=== PATIENT | female | born 2000 | race Two or more races ===

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

== ENCOUNTER 2019-06-06 07:45 | Emergency (ER) | payer OTHER ==
[~2019-06-06] VITALS: Ht 154.9 cm; Wt 47.6 kg
[~2019-06-06 07:45] MED LIST changes: +OMEPRAZOLE10 M1 ORAL; +ZOFRAN4 MG ORAL
--- NOTE | 2019-06-06 08:00 | NUR ---
ED Nurse Note: Pt walked in to ER c/o sore throat and having fever for 2 days. pt aao x4 and ambulatory. skin clean and intact. pt calm and cooperative. pt is in gown and on dry ice maker due to high heart rate in triage. no acute distress noted. pt reported that she has been coughing but could not cough up phlem and it hurts her throat. nausea present but no vomiting. pt also c/o occasional chest tightness which she is unsure if it is due to coughing.
[2019-06-06 08:05] VITALS: BP 98/67
--- NOTE | 2019-06-06 08:10 | NUR ---
ED Nurse Note: ERMD at bedside.
--- NOTE | 2019-06-06 08:14 | Emergency Room Report ---
History of Present Illness General Chief Complaint: Fever Source: Patient, Medical Record Present Illness HPI Disclaimer: Please note that this report is being documented using [employer] technology. This can lead to erroneous entry secondary to incorrect interpretation by the dictating instrument. HPI: 19-year-old female presents for evaluation of fever, body aches, nausea. Patient describes symptoms for 2 to 3 days. Notes intermittent fevers as high as 101 degrees at home taken orally as well as rigors. She has been nauseated but no vomiting. Complaining of nasal congestion, diffuse myalgias and arthralgias, increased sneezing without coughing, headaches, dysuria. She denies hematuria, vaginal bleeding, vaginal discharge. She has a Nexplanon implant last period was 1 month ago. She notes some abdominal cramping and diarrhea. Denies melena or hematochezia. Denies rash or skin breakdown. No known sick contacts. She has been taking NSAIDs at home with minimal improvement in her symptoms. Last dose of NSAIDs was yesterday evening. PMH: Eczema PSH: None Allergies: Seasonal, shellfish, pet dander Social Hx: Denies alcohol, tobacco or drug use Allergies: Uncoded Allergies: CATS (Allergy, Unknown, 06/06/19) COCKROACHES (Allergy, Unknown, 06/06/19) DOGS (Allergy, Unknown, 06/06/19) SHIMP (Allergy, Unknown, 06/06/19) Patient History Last Menstrual Period: april Now: No Review of Systems All Other Systems: negative except mentioned in HPI Physical Exam Vital Signs Date Time Temp Pulse Resp B/P (MAP) Pulse Ox O2 Delivery O2 Flow Rate FiO2 06/06/19 07:52 99.9 135 16 98/67 (77) 96 Room Air General: Awake and alert, appears fatigued, uncomfortable HEENT: NC/AT. EOMI. PERRLA. No nystagmus. Anicteric sclera. Moist mucous membranes. Retropharynx is erythematous without exudate. Tonsils are 3+, uvula is midline. No exudate. Voice is muffled slightly though the patient is breathing without difficulty. Tolerating her secretions. Neck: Supple, trachea midline. Mild anterior cervical lymphadenopathy. No submandibular swelling Chest Wall: Chest wall is mildly tender to palpation without deformity Cardiovascular: Tachycardia, rate in the 130s. S1 and S2 normal. No murmur appreciated Resp: Normal work of breathing. No cough, wheezing or crackles appreciated Abdomen: Abdomen is soft, nondistended. Nontender. No masses appreciated. Skin: Warm to the touch. Intact. No abrasions, laceration or rash over the exposed skin MSK: Normal tone and bulk. Moving all extremities. No obvious deformity. Tenderness over almost all major joints and muscle groups. Neuro: Awake and alert. Mentating appropriately. Moving all extremities. Medical Decision Making ER Course Is a 19-year-old female presenting with several days of febrile illness, nausea , diarrhea and dysuria. Differential includes but is not limited to upper respiratory infection, epiglottitis, pharyngitis, tonsillitis pyelonephritis, gastroenteritis, viral syndrome, upper respiratory syndrome, sepsis. Patient is tachycardic, slight elevation in temperature but does not meet fever criteria , overall fatigued and uncomfortable appearing. Will start IV fluids, 30 cc/kg bolus, antipyretics, antiemetics. Will send labs including cultures, sepsis protocol ordered along with CXR and soft tissue neck XR. Will give steroids for throat pain and swelling. Laboratory Tests Test 06/06/19 08:10 White Blood Count 12.3 K/UL (4.8-10.8) H Red Blood Count 4.43 M/UL (4.20-5.40) Hemoglobin 13.2 G/DL (12.0-16.0) Hematocrit 38.8 % (37.0-47.0) Mean Corpuscular Volume 88 FL (80-99) Mean Corpuscular Hemoglobin 29.8 PG (27.0-31.0) Mean Corpuscular Hemoglobin Concent 33.9 G/DL (32.0-36.0) Red Cell Distribution Width 11.6 % (11.6-14.8) Platelet Count 244 K/UL (150-450) Mean Platelet Volume 6.8 FL (6.5-10.1) Neutrophils (%) (Auto) % (45.0-75.0) Lymphocytes (%) (Auto) % (20.0-45.0) Monocytes (%) (Auto) % (1.0-10.0) Eosinophils (%) (Auto) % (0.0-3.0) Basophils (%) (Auto) % (0.0-2.0) Neutrophils % (Manual) Pending Lymphocytes % (Manual) Pending Platelet Estimate Pending Platelet Morphology Pending Urine Color Pale yellow Urine Appearance Clear Urine pH 8 (4.5-8.0) Urine Specific [place] 1.015 (1.005-1.035) Urine Protein Negative (NEGATIVE) Urine Glucose (UA) Negative (NEGATIVE) Urine Ketones 2+ (NEGATIVE) H Urine Blood 1+ (NEGATIVE) H Urine Nitrite Negative (NEGATIVE) Urine Bilirubin Negative (NEGATIVE) Urine Urobilinogen 1 MG/DL (0.0-1.0) H Urine Leukocyte Esterase Negative (NEGATIVE) Urine RBC 0-2 /HPF (0 - 2) Urine WBC 0-2 /HPF (0 - 2) Urine Squamous Epithelial Cells Few /LPF (NONE/OCC) Urine Amorphous Sediment Few /LPF (NONE) H Urine Bacteria Occasional /HPF (NONE) Sodium Level 135 MMOL/L (136-145) L Potassium Level 3.9 MMOL/L (3.5-5.1) Chloride Level 101 MMOL/L (98-107) Carbon Dioxide Level 25 MMOL/L (21-32) Anion Gap 9 mmol/L (5-15) Blood Urea Nitrogen 7 mg/dL (7-18) Creatinine 0.6 MG/DL (0.55-1.30) Estimat Glomerular Filtration Rate > 60 mL/min (>60) Glucose Level 99 MG/DL (74-106) Lactic Acid Level 0.70 mmol/L (0.4-2.0) Calcium Level 9.1 MG/DL (8.5-10.1) Total Bilirubin 0.3 MG/DL (0.2-1.0) Aspartate Amino Transf (AST/SGOT) 15 U/L (15-37) Alanine Aminotransferase (ALT/SGPT) 15 U/L (12-78) Alkaline Phosphatase 68 U/L (46-116) Total Creatine Kinase 37 U/L (26-308) Creatine Kinase MB < 0.5 NG/ML (0.0-3.6) Creatine Kinase MB Relative Index 1.3 Troponin I 0.000 ng/mL (0.000-0.056) Total Protein 7.7 G/DL (6.4-8.2) Albumin 3.8 G/DL (3.4-5.0) Globulin 3.9 g/dL Albumin/Globulin Ratio 1.0 (1.0-2.7) EKG Diagnostic Results EKG Time: 08:30 Rate: tachycardiac Rhythm: NSR Other Impression Sinus tachycardia with a rate of 108 bpm. Normal intervals, normal axis. No acute ischemic changes. Rhythm Strip Diag. Results Rhythm Strip Time: 08:30 EP Interpretation: yes Rate: 100s Rhythm: NSR Chest X-Ray Diagnostic Results Chest X-Ray Diagnostic Results : Chest X-Ray Ordered: Yes # of Views/Limited/Complete: 1 View Indication: Shortness of Breath EP Interpretation: Yes Interpretation: no consolidation, no effusion, no pneumothorax Impression: Other - Mild increase in pulmonary vascularity, may represent viral syndrome Electronically Signed by: Electronically signed by Dr. Micah Ronquillo Other X-Ray Diagnostic Results Other X-Ray Diagnostic Results : X-Ray ordered: Soft tissue neck # of Views/Limited Vs Complete: 2 View Indication: Pain Impression: Other - Patent airway. Epiglottis appears normal in size Reevaluation Time: 10:00 Last Vital Signs Date Time Temp Pulse Resp B/P (MAP) Pulse Ox O2 Delivery O2 Flow Rate FiO2 06/06/19 07:52 99.9 135 16 98/67 (77) 96 Room Air Reevaluation Impression Fever improving after antipyretics. Patient is receiving IV fluids and heart rate is also improving. Lab work shows an elevated white count but otherwise largely within normal limits. No evidence of a clear urinary tract infection, no electrolyte abnormalities, normal renal function, troponin is negative and lactate is 0.7. She is receiving 30 cc/kg bolus. Chest x-ray shows no obvious infiltrates but does show some increased vascularity likely reactive from possible viral illness. 1108: Fever resolved. Tachycardia resolved. Likely an upper respiratory infection, most likely viral. Cultures of the throat are sent as were blood cultures. I offered her admission for IV fluid hydration, continued monitoring of fever and pain control though she is electing to return home at this time. We will provide a note for work and discharged with 2 additional days of prednisone for throat swelling. Gave very strict return precautions to patient and family were present at bedside. They all verbalized understanding of the lab results, new medications, need for follow-up and reasons to return to the emergency department. Patient will be discharged home. 1200: Notified by radiologist of their interpretation of possible mass causing widening the hypopharynx versus prominent tonsils. Also noted questionable lobulated appearance to the glottic region in the lateral view without evidence of epiglottic swelling or glottic narrowing. While I did visualize the retropharynx and the patient had very large tonsils that were nonobstructing I did notify her at home and advised her to return to the emergency department for a CT scan of the neck to fully evaluate for possible mass. The patient was speaking full sentences and stated that she was feeling greatly improved since returning home. She had no problem tolerating secretions, drinking and eating. She stated that she would return to the emergency department though may not be able to do so today she would return tomorrow for reevaluation and CT scan of the neck. I did stress that is important that she follow-up on this as there may be a soft tissue swelling/mass in the neck that is not related to her tonsils that needs to be further evaluated. She understood this and stated that she would return to the emergency department most likely tomorrow morning Disposition: HOME, SELF-CARE Condition: Improved Scripts Prednisone* (PREDNISONE*) 20 Mg Tablet 40 MG ORAL DAILY for 2 Days, #4 TAB Prov: Micah Ronquillo MD 06/06/19 Ondansetron Odt* (ZOFRAN ODT*) 4 Mg Tab.rapdis 4 MG BC EVERY 6 HOURS PRN for Nausea & Vomiting, #20 TAB 0 Refills Prov: Micah Ronquillo MD 06/06/19 Referrals: NON PHYSICIAN (PCP) Micah Ronquillo MD Jun 06, 2019 08:14
[2019-06-06] MEDS ORDERED: Sodium Chloride 1,400 ML IVLG ONE (08:15)
[2019-06-06] MEDS ORDERED: Acetaminophen 500mg (ES) tab ORAL ONE (08:15)
--- NOTE | 2019-06-06 08:20 | NUR ---
ED Nurse Note: x-ray at bedside.
[2019-06-06 08:29] LABS: APPEARANCE,URINE CLEAR; BILIRUBIN, URINE NEGATIVE (NEGATIVE); COLOR,URINE PALE YELLOW; GLUCOSE, URINE (UA) NEGATIVE (NEGATIVE); KETONES,URINE 2+ (NEGATIVE); LEUKOCYTE ESTERASE ,URINE NEGATIVE (NEGATIVE); NITRITE,URINE NEGATIVE (NEGATIVE); PROTEIN,URINE NEGATIVE (NEGATIVE); UROBILINOGEN,URINE 1 MG/DL (0.0-1.0)
[2019-06-06 08:35] LABS: ANION GAP 9 mmol/L (5-15); BLOOD UREA NITROGEN 7 mg/dL (7-18); CALCIUM 9.1 MG/DL (8.5-10.1); CARBON DIOXIDE 25 MMOL/L (21-32); CHLORIDE 101 MMOL/L (98-107); CREATININE 0.6 MG/DL (0.55-1.30); HEMATOCRIT 38.8 % (37.0-47.0); HEMOGLOBIN 13.2 G/DL (12.0-16.0); MEAN CORPUSCULAR VOLUME 88 FL (80-99); PLATELET COUNT 244 K/UL (150-450); POTASSIUM 3.9 MMOL/L (3.5-5.1); RED BLOOD COUNT 4.43 M/UL (4.20-5.40); RED CELL DISTRIBUTION WIDTH 11.6 % (11.6-14.8); SODIUM 135 MMOL/L (136-145); WHITE BLOOD COUNT 12.3 K/UL (4.8-10.8)
[2019-06-06 08:41] LABS: PH,URINE 8 (4.5-8.0)
[2019-06-06] MEDS ORDERED: Dexamethasone 4mg/ml vial IVP ONE (08:45)
[2019-06-06 08:48] LABS: ALANINE AMINOTRANSFERASE 15 U/L (12-78); ALBUMIN 3.8 G/DL (3.4-5.0); ALKALINE PHOSPHATASE 68 U/L (46-116); ASPARTATE AMINO TRANSFERASE 15 U/L (15-37); BILIRUBIN,TOTAL 0.3 MG/DL (0.2-1.0); CKMB < 0.5 NG/ML (0.0-3.6); CREATINE KINASE 37 U/L (26-308)
--- NOTE | 2019-06-06 08:55 | NUR ---
ED Nurse Note: pt went down to x-ray neck soft tissue in stable condition.
--- NOTE | 2019-06-06 09:14 | NUR ---
ED Nurse Note: pt came back from x-ray in stable condition.
--- NOTE | 2019-06-06 09:37 | NUR ---
ED Nurse Note: ERMD at bedside explaining pt about lab results.
[2019-06-06 10:05] VITALS: BP 101/74
--- NOTE | 2019-06-06 11:00 | NUR ---
ED Nurse Note: ERMD at bedside talking to family and pt.
[2019-06-06] MEDS ORDERED: ONDANSETRON ODT4 MG BC (11:07)
[2019-06-06] MEDS ORDERED: PREDNISONE20 MG ORAL (11:07)
[2019-06-06 11:15] VITALS: BP 108/71
--- NOTE | 2019-06-06 11:15 | NUR ---
ER DISCHARGE NOTE: Patient is cleared to be discharged per ERMD, pt is aox4, accompanied by parents, on room air, with stable vital signs. pt was given dc and prescription instructions, pt was able to verbalize understanding, pt id band and iv site removed without complications. pt is able to ambulate with steady gait. pt took all belongings.
--- NOTE | 2019-06-06 11:51 | Diagnostic Imaging Report ---
Indication: Neck pain and cough Technique: 2 views of the neck with soft tissue technique Comparison: none Findings: No prevertebral soft tissue swelling. No glottic narrowing demonstrated. Normal appearing epiglottis. There is suggestion of a lobulated soft tissue mass widening the hypopharynx. There is also a somewhat lobulated appearance to the glottic region. No radiopaque foreign body Impression: Possible soft tissue mass widening the hypopharynx versus prominent tonsils Questionable unusual lobulated appearance to the glottic region on the lateral view. Correlate with clinical findings, consider direct visualization No radiopaque foreign body No evidence of epiglottic swelling or glottic narrowing. Findings discussed by phone with Dr. Ronquillo in the emergency room at the time of interpretation
--- NOTE | 2019-06-06 15:23 | Diagnostic Imaging Report ---
Indication: Cough Technique: One view of the chest Comparison: none Findings: Lungs and pleural spaces are clear. Heart size is normal. Impression: No acute process
[2019-06-07] MEDS ORDERED: AUGMENTIN 875-1 EAC1 ORAL (15:45)
--- NOTE | 2019-06-10 11:20 | Cardiology Report ---
APPROVED REPORT EKG Measurement Heart [id number] ND [id number] [id number] Sinus tachycardia Low voltage QRS Borderline ECG
== END 2019-06-06 11:15 | disposition home or self-care (01) ==
LOC: EMR 08:00
DX: R50.9 Fever, unspecified (principal); R11.0 Nausea; R19.7 Diarrhea, unspecified; R30.0 Dysuria; Z91.013 Allergy to seafood; Z91.09 Other allergy status, other than to drugs and biological substances; R00.0 Tachycardia, unspecified
CPT/HCPCS: 36415; 70360; 71045; 80053; 81003; 82550; 82553; 83605; 84484; 85007; 85025; 87040; 87070; 93005; 96361; 96374; 96375; 99284; J1100; J2405

== ENCOUNTER 2019-06-07 13:18 | Emergency (ER) | payer OTHER ==
[~2019-06-07] VITALS: Ht 154.9 cm; Wt 47.6 kg
[~2019-06-07 13:18] MED LIST changes: +ONDANSETRON ODT4 MG BC; +PREDNISONE20 MG ORAL
--- NOTE | 2019-06-07 13:50 | NUR ---
ED Nurse Note: Patient walked into ED for neck pain after getting a phone call from [facility] to come back for CT SCAN of the neck. patient was here at [facility] on 06/06/19. patient is alert awake x4 ambulatory, breathing unlabored and even.
[2019-06-07] MEDS ORDERED: Isovue-370 150ml vial INJ PRN (14:00)
--- NOTE | 2019-06-07 14:44 | NUR ---
ED Nurse Note: patient taken to CT scan.
[2019-06-07 15:01] LABS: BASOPHILS % (AUTO) 0.5 % (0.0-2.0); EOSINOPHILS % (AUTO) 1.1 % (0.0-3.0); HEMATOCRIT 36.2 % (37.0-47.0); HEMOGLOBIN 11.9 G/DL (12.0-16.0); LYMPHOCYTES % (AUTO) 13.4 % (20.0-45.0); MEAN CORPUSCULAR VOLUME 89 FL (80-99); MONOCYTES % (AUTO) 7.1 % (1.0-10.0); NEUTROPHILS % (AUTO) 77.9 % (45.0-75.0); PLATELET COUNT 249 K/UL (150-450); RED BLOOD COUNT 4.07 M/UL (4.20-5.40); RED CELL DISTRIBUTION WIDTH 11.7 % (11.6-14.8)
--- NOTE | 2019-06-07 15:39 | Diagnostic Imaging Report ---
EXAM: CT Neck With Intravenous Contrast CLINICAL HISTORY: MASS TECHNIQUE: Axial computed tomography images of the neck with intravenous contrast. CTDI is 17.51 mGy and DLP is 542 mGy-cm. One or more of the following dose reduction techniques were used: automated exposure control, adjustment of the mA and/or kV according to patient size, use of iterative reconstruction technique. COMPARISON: No relevant prior studies available. FINDINGS: Marked palatine and lingual tonsillar swelling. The adenoid is also swollen. Findings are consistent with pharyngitis. Moderate degree of oropharyngeal/hypopharyngeal airway narrowing. Effacement of the vallecula. No peritonsillar abscess. No clear evidence of epiglottitis. No retropharyngeal abscess. IMPRESSION: Pharyngitis with left greater than right palatine and lingual tonsillar swelling. Moderate airway narrowing. No abscess. <MYCVCSECTION> Critical Value Communications 06/07/19 15:45 Verify Receipt Verified receipt with [facility] EMT given to Danielle HUMPHREYS on 06/07 15:45 (-07:00)
--- NOTE | 2019-06-07 15:43 | Emergency Room Report ---
History of Present Illness General Chief Complaint: Pain Source: Medical Record Present Illness HPI 19-year-old female with no significant past medical history here requesting a CT scan of the neck. Patient was here at [facility] yesterday for sore throat fever of 101. And neck pain. Soft tissue x-ray of neck was performed and showed a possible mass. Patient was told by Dr. Ronquillo to return to the emergency room for CT scan of the neck with contrast. Patient was discharged with prednisone and Zofran as well as ibuprofen. Patient is rating her pain 5 out of 10 today reports that has not yet started the medication yet. Denies fever and chills, cough and congestion. Denies abdominal pain, nausea vomiting. Patient is in no distress. Denies neck stiffness, photophobia, headache and blurry vision. Allergies: Uncoded Allergies: CATS (Allergy, Unknown, 06/06/19) COCKROACHES (Allergy, Unknown, 06/06/19) DOGS (Allergy, Unknown, 06/06/19) SHIMP (Allergy, Unknown, 06/06/19) Patient History Past Medical History: see triage record Past Surgical History: unable to obtain Pertinent Family History: none Last Menstrual Period: 04/2019 Now: No : 1 Para: 0 Immunizations: UTD Reviewed Nursing Documentation: PMH: Agreed; PSxH: Agreed Review of Systems All Other Systems: negative except mentioned in HPI Physical Exam Vital Signs Date Time Temp Pulse Resp B/P (MAP) Pulse Ox O2 Delivery O2 Flow Rate FiO2 06/07/19 13:46 99.3 102 18 99/66 (77) 98 Room Air Sp02 EP Interpretation: reviewed, normal General Appearance: well appearing, no apparent distress Head: normocephalic, atraumatic Eyes: bilateral eye normal inspection, bilateral eye PERRL ENT: hearing grossly normal, normal voice, tonsillar swelling Neck: full range of motion, supple Respiratory: normal inspection, chest non-tender, lungs clear, no respiratory distress, no wheezing, speaking full sentences Cardiovascular #1: normal inspection, regular rate, rhythm, no edema, no murmur , normal capillary refill Cardiovascular #2: 2+ carotid (R), 2+ carotid (L) Gastrointestinal: normal inspection, soft Genitourinary: no CVA tenderness Musculoskeletal: normal inspection, back normal Neurologic: normal inspection, alert, oriented x3 Psychiatric: normal inspection, judgement/insight normal Skin: normal color Lymphatic: adenopathy - Anterior cervical Medical Decision Making PA Attestation All my diagnosis and treatment plans were reviewed ad discussed with my supervising physician Dr. Hebert Diagnostic Impression: Primary Impression: Acute pharyngitis ER Course 19-year-old female with no significant past medical history here requesting a CT scan of the neck. Patient was here at [facility] yesterday for sore throat fever of 101. And neck pain. Soft tissue x-ray of neck was performed and showed a possible mass. Patient was told by Dr. Ronquillo to return to the emergency room for CT scan of the neck with contrast. Patient was discharged with prednisone and Zofran as well as ibuprofen. Patient is rating her pain 5 out of 10 today reports that has not yet started the medication yet. Denies fever and chills, cough and congestion. Denies abdominal pain, nausea vomiting. Patient is in no distress. Denies neck stiffness, photophobia, headache and blurry vision. Ddx considered but are not limited to: strep pharyngitis, URI, tonsillitis, peritonsillar abscess, influenza Vital signs: are WNL, pt. is afebrile H&PE are most consistent with: Acute pharyngitis without abscess ORDERS: Augmentin ED INTERVENTIONS: None required at this time. DISCHARGE: At this time pt. is stable for d/c to home. Will provide printed patient care instructions, and any necessary prescriptions. Care plan and follow up instructions have been discussed with the patient prior to discharge. Continue taking ibuprofen, prednisone, Zofran. Follow-up with primary care provider CT/MRI/US Diagnostic Results CT/MRI/US Diagnostic Results : Imaging Test Ordered: CT soft tissue with IV contrast Impression No abscess noted Last Vital Signs Date Time Temp Pulse Resp B/P (MAP) Pulse Ox O2 Delivery O2 Flow Rate FiO2 06/07/19 13:46 99.3 102 18 99/66 (77) 98 Room Air Disposition: HOME, SELF-CARE Condition: Stable Scripts Amoxicillin/Potassium Clav 875-125* (AUGMENTIN 875-125 TABLET*) 1 Each Tablet 1 TAB ORAL TWICE A DAY for 10 Days, #20 TAB Prov: Demetrio Griffin 06/07/19 Patient Instructions: Pharyngitis, [id number] Additional Instructions: Follow-up with your primary care provider regarding tonsillar swelling take medication as directed Demetrio Griffin Jun 07, 2019 15:42
[2019-06-07] MEDS ORDERED: AUGMENTIN 875-1 EAC1 ORAL (15:45)
[2019-06-07 15:53] VITALS: BP 99/66
[2019-06-07 15:54] VITALS: BP 99/66
--- NOTE | 2019-06-07 15:54 | NUR ---
ER DISCHARGE NOTE: Patient is cleared to be discharged per THONY HERZOG, pt is aox4, on room air, with stable vital signs. pt was given dc and prescription instructions, pt was able to verbalize understanding, pt id band and iv site removed without complications. pt is able to ambulate with steady gait. pt took all belongings.
== END 2019-06-07 15:54 | disposition home or self-care (01) ==
LOC: EMR 14:23
DX: J02.9 Acute pharyngitis, unspecified (principal); Z91.048 Other nonmedicinal substance allergy status; Z91.013 Allergy to seafood; M54.2 Cervicalgia
CPT/HCPCS: 36415; 70491; 85025; 99284; Q9967